=== PATIENT | female | born 1945 | race Two or more races ===

== ENCOUNTER 2018-04-11 06:12 | Emergency (ER) | payer OTHER ==
[~2018-04-11] VITALS: Ht 154.9 cm; Wt 65.8 kg
[~2018-04-11 06:12] MED LIST: CLONAZEPAM2 MG; METOPROLOL SUCC50 MG; OMEPRAZOLE10 MG
[2018-04-11] MEDS ORDERED: RISPERDAL0.5 MG (06:25)
== END 2018-04-11 10:30 | disposition home or self-care (01) ==
LOC: ER 06:12
DX: R07.89 Other chest pain (principal); F41.8 Other specified anxiety disorders; F41.0 Panic disorder [episodic paroxysmal anxiety]